=== PATIENT | female | born 1965 | race Caucasian/White ===

== ENCOUNTER 2017-07-17 17:23 | Emergency (ER) | payer MEDICAID ==
[2017-07-17 17:38] VITALS: BP 128/84; PULSE 86; TEMP 98.9; O2SAT 97
[2017-07-17] MEDS ORDERED: Albuterol-Ipratrop 3 mg / 0.5 (3 ml) UD INH STA (17:50)
[2017-07-17] MEDS ORDERED: Albuterol-Ipratrop 3 mg / 0.5 (3 ml) UD ONE (17:57)
[2017-07-17 18:09] VITALS: RESP 18
--- NOTE | 2017-07-17 18:19 | ED PDOC ---
HPI: SOB/CHF/COPD Time Seen by Provider: 07/17/17 17:38 Chief Complaint (Nursing): Shortness Of Breath Chief Complaint (Provider): Dry cough History Per: Patient History/Exam Limitations: no limitations Onset/Duration Of Symptoms: Days (x2 weeks) Current Symptoms Are (Timing): Still Present Associated Symptoms: Other (chest tightness). denies: Fever, Chills, Chest Pain Additional History Per: Family Additional Complaint(s): Gaby Felix is a 51 year old female, with a past medical history of bronchitis , who presents to the emergency department complaining of dry cough associated with chest tightness, onset for 2 weeks. Patient reports she was seen by her primary care physician who put her on augmentin, gave her a nebulizer and pump which she has been using without relief. Patient denies any fever, chills, and chest pain. PMD: Bonilla Morse Past Medical History Reviewed: Historical Data, Nursing Documentation, Vital Signs Vital Signs: Last Vital Signs Temp 98.9 F 07/17/17 17:34 Pulse 86 07/17/17 17:34 Resp 18 07/17/17 18:06 BP 128/84 07/17/17 17:34 Pulse Ox 97 07/17/17 18:28 - Medical History PMH: Bronchitis - Family History Family History: States: Unknown Family Hx - Social History Current smoker - smoking cessation education provided: No Alcohol: None Drugs: Denies - Immunization History Hx Tetanus Toxoid Vaccination: No Hx Influenza Vaccination: No Hx Pneumococcal Vaccination: No - Home Medications Home Medications: Ambulatory Orders Medication Instructions Recorded Ciprofloxacin/Hydrocortisone 10 ml XX BID 7 Days 07/21/14 [Cipro Hc 0.2%-1% 10 ml] Guaifenesin/Pseudoephedrne HCl 1 tab PO DAILY PRN #30 ter 07/17/17 [Mucinex D 600 mg-60 mg] Methylprednisolone [Medrol Dose 4 mg PO DAILY #21 mg 07/17/17 Pack (21 tabs)] Promethazine HCl/Codeine 5 ml PO HS #80 ml 07/17/17 [Prometh-Codein 6.25-10 mg/5 ml] - Allergies Allergies/Adverse Reactions: Allergies Allergy/AdvReac Type Severity Reaction Status Date / Time No Known Allergies Allergy Verified 07/21/14 16:17 Review of Systems ROS Statement: Except As Marked, All Systems Reviewed And Found Negative Constitutional: Negative for: Fever, Chills Cardiovascular: Negative for: Chest Pain Respiratory: Positive for: Cough (dry), Other (chest tightness) Physical Exam - Reviewed Nursing Documentation Reviewed: Yes Vital Signs Reviewed: Yes - Physical Exam Appears: Positive for: Well, Non-toxic, No Acute Distress Head Exam: Positive for: ATRAUMATIC, NORMAL INSPECTION, NORMOCEPHALIC Skin: Positive for: Normal Color, Warm, DRY Eye Exam: Positive for: Normal appearance Cardiovascular/Chest: Positive for: Regular Rate, Rhythm Respiratory: Positive for: Normal Breath Sounds. Negative for: Respiratory Distress Neurologic/Psych: Positive for: Alert, Oriented - ECG O2 Sat by Pulse Oximetry: 97 (RA) Pulse Ox Interpretation: Normal Medical Decision Making Medical Decision Making: Initial Impression: Initial Plan: --CXR two views (PA/LAT) [RAD] --Duoneb 3 mg/0.5 mg (3ml) UD --methylprednisolone 125mg IVP --Peak flow pre/post TX --reevaluation CXR: NAD, as read by TODD Pt reports feeling improved on re-eval. Advised to continue with meds as prescribed, return to ED with any concerns. POX: 100% on discharge, Lungs CTA bilaterally. Scribe Attestation: Documented by Raman Rubio, acting as a scribe for Noa ESTRADA. Provider Scribe Attestation: All medical record entries made by the Scribe were at my direction and personally dictated by me. I have reviewed the chart and agree that the record accurately reflects my personal performance of the history, physical exam, medical decision making, and the department course for this patient. I have also personally directed, reviewed, and agree with the discharge instructions and disposition. Disposition - Clinical Impression Clinical Impression: Upper respiratory infection - Patient ED Disposition Is Patient to be Admitted: No - Disposition Disposition: Routine/Home Disposition Time: 19:21 Condition: STABLE Prescriptions: Guaifenesin/Pseudoephedrne HCl [Mucinex D 600 mg-60 mg] 1 tab PO DAILY PRN #30 ter PRN Reason: congestion Methylprednisolone [Medrol Dose Pack (21 tabs)] 4 mg PO DAILY #21 mg Promethazine HCl/Codeine [Prometh-Codein 6.25-10 mg/5 ml] 5 ml PO HS #80 ml Instructions: Upper Respiratory Infection (ED) Forms: [facility] [facility] ([place]) - POA Present On Arrival: None
--- NOTE | 2017-07-18 11:05 | RAD ---
HISTORY: COugh and back pain COMPARISON: No prior. TECHNIQUE: Chest PA and lateral FINDINGS: LUNGS: No active pulmonary disease. PLEURA: No significant pleural effusion identified. No pneumothorax apparent. CARDIOVASCULAR: Normal. OSSEOUS STRUCTURES: No significant abnormalities. VISUALIZED UPPER ABDOMEN: Normal. OTHER FINDINGS: None. IMPRESSION: No acute cardiopulmonary disease appreciated.
== END 2017-07-17 19:32 | disposition home or self-care (01) ==
LOC: H.ER 17:23
DX: J06.9 Acute upper respiratory infection, unspecified (principal)
CPT/HCPCS: 71020; 94640; 96374; 99281; J2930